=== PATIENT | male | born 1965 | race Caucasian/White ===

== ENCOUNTER 2017-11-06 07:18 | Emergency (ER) | payer OTHER ==
[2017-11-06] MEDS: KETOROLAC 30 MG INJ IM (07:49)
[2017-11-06] MEDS: predniSONE 20 MG TAB PO (07:49)
== END 2017-11-06 07:59 | disposition home or self-care (01) ==
LOC: E/R 07:18
DX: M10.9 Gout, unspecified (principal); R40.2142 Coma scale, eyes open, spontaneous, at arrival to emergency department; R40.2252 Coma scale, best verbal response, oriented, at arrival to emergency department; R40.2362 Coma scale, best motor response, obeys commands, at arrival to emergency department
CPT/HCPCS: 96372; 99284-25